=== PATIENT | female | born 1965 | race African-American/Black ===

== ENCOUNTER 2022-12-06 04:36 | Emergency (ER) | payer OTHER ==
[~2022-12-06] VITALS: Ht 162.6 cm; Wt 83.4 kg
[2022-12-06 05:01] VITALS: O2SAT 97
[2022-12-06] MEDS ORDERED: KETOROLAC 60MG/2ML VIAL IM ONE (05:30)
[2022-12-06 05:35] VITALS: BP 187/117
[2022-12-06] MEDS ORDERED: IBUP-2028 PO (06:47)
[2022-12-06] MEDS ORDERED: T3 PO (06:47)
[2022-12-06 06:59] VITALS: PULSE 81; RESP 18; TEMP 98.2
== END 2022-12-06 07:01 | disposition home or self-care (01) ==
LOC: ER 04:36
DX: S83.91XA Sprain of unspecified site of right knee, initial encounter (principal); M25.561 Pain in right knee; I10 Essential (primary) hypertension; W18.39XA Other fall on same level, initial encounter; Y93.89 Activity, other specified; Y92.89 Other specified places as the place of occurrence of the external cause; Y99.8 Other external cause status
CPT/HCPCS: 73560; 96372; 99283; J1885; Z7610